=== PATIENT | female | born 1995 | race Caucasian/White ===

== ENCOUNTER 2019-02-15 19:18 | Emergency (ER) | payer MEDICAID ==
--- NOTE | 2019-02-15 19:51 | ER Document Report ---
ED General - General Chief Complaint: Urinary Problem Stated Complaint: ABDOMINAL/BACK PAIN Time Seen by Provider: 02/15/19 19:41 Primary Care Provider: YOANA LEAL MD [Primary Care Provider] - Follow up as needed Mode of Arrival: Ambulatory Information source: Patient TRAVEL OUTSIDE OF THE [place] IN LAST 30 DAYS: No - HPI Patient complains to provider of: Suprapubic pain, dysuria, back pain Onset: Other - 4 days ago Onset/Duration: Sudden Quality of pain: Sharp Severity: Moderate Pain Level: 3 Associated symptoms: Nausea. denies: Chills, Diarrhea, Fever, Vomiting Exacerbated by: Movement, Walking Relieved by: Denies Similar symptoms previously: No Recently seen / treated by doctor: No Notes: 23-year-old female coming in today with suprapubic discomfort worse with urination, pain in the occasional nausea. Does not have vomiting. No fevers or chills. No vaginal discharge. Denies . Allergy to amoxicillin. - Related Data Allergies/Adverse Reactions: amoxicillin [Amoxicillin] Allergy (Verified 02/06/15 06:40) Diarrhea Past Medical History - General Information source: Patient - Social History Smoking Status: Smoker,Current Status Unk Family History: Reviewed & Not Pertinent - Past Medical History Cardiac Medical History: Denies: Hx Coronary Artery Disease, Hx Heart Attack, Hx Hypertension Pulmonary Medical History: Denies: Hx Asthma, Hx Bronchitis, Hx COPD, Hx Pneumonia Neurological Medical History: Denies: Hx Cerebrovascular Accident, Hx Seizures Musculoskeletal Medical History: Denies Hx Arthritis Past Surgical History: Reports: Hx Section - 2014, Hx Tonsillectomy - Immunizations Immunizations up to date: Yes Hx Diphtheria, Pertussis, Tetanus Vaccination: No Review of Systems - Review of Systems Notes: Constitutional: No fevers. No chills. EENT: No eye redness. No eye pain. No ear pain. No sore throat. Cardiovascular: No chest pain. No palpitations. Respiratory: No cough. No shortness of breath. No respiratory distress. Gastrointestinal: Suprapubic abdominal pain no nausea, vomiting, or diarrhea. Genitourinary: Positive for dysuria. Negative for vaginal discharge Musculoskeletal: Atraumatic. No swelling. No deformities. Skin: No rash or lesions. Lymphatic: No swollen lymph nodes. Neurologic: No headache. No syncope. Psychiatric: No suicidal or homicidal ideation. Physical Exam - Vital signs Vitals: Temp Pulse Resp BP Pulse Ox 98.3 F 89 18 137/87 H 100 02/15/19 19:25 02/15/19 19:25 02/15/19 19:25 02/15/19 19:25 02/15/19 19:25 - Notes Notes: General: Well-developed, well-nourished. In no acute distress. Non-toxic appearing. Cardiac: Well-perfused. Regular rate and rhythm. No murmurs, rubs, or gallops. Pulmonary: No respiratory distress. No cyanosis. Bilateral lung dickerson are clear to auscultation. Abdominal: Non-distended. Non-rigid. Bowels sounds are present in all four quadrants. No guarding or rebound. No CVA tenderness HEENT: Head is atraumatic. Conjunctivae not reddened. No tearing. PERRL. EOMI. Orbits atraumatic. No periorbital swelling or erythema. Oropharynx is without erythema, swelling, or exudates. Neck: Supple. No adenopathy. No meningismus. Dermatologic: Warm with good turgor. No rash. Atraumatic. Chest: Atraumatic. No chest wall tenderness to palpation. Musculoskeletal: Moves all extremities well. No range of motion deficits. no midline spinal tenderness or step-off. Right paralumbar tenderness Genitourinary: Examination deferred Neurologic: No gross neurologic deficits. Psychiatric: Normal mood. Course - Re-evaluation Re-evalutation: 02/15/19 19:50 We will start with a UA and a and go from there 02/15/19 21:02 Urinalysis is strongly positive. We will give her first dose of Keflex and Pyridium and will discharge her home on the same. Follow-up with [facility] for recheck on Monday - Vital Signs Vital signs: Temp Pulse Resp BP Pulse Ox 98.3 F 89 18 137/87 H 100 02/15/19 19:25 02/15/19 19:25 02/15/19 19:25 02/15/19 19:25 02/15/19 19:25 - Laboratory Laboratory results interpreted by me: 02/15/19 20:10 Urine Blood MODERATE H Urine Nitrite POSITIVE H Ur Leukocyte Esterase LARGE H Discharge - Discharge Clinical Impression: Urinary tract infection Qualifiers: Urinary tract infection type: site unspecified Hematuria presence: without hematuria Qualified Code(s): N39.0 - Urinary tract infection, site not specified Condition: Good Disposition: HOME, SELF-CARE Instructions: Urinary Tract Infection ([facility]) Prescriptions: Doxycycline Hyclate 100 mg PO BID #14 capsule Phenazopyridine HCl [Pyridium 200 mg Tablet] 200 mg PO TID 2 Days #6 tablet Referrals: YOANA LEAL MD [Primary Care Provider] - Follow up as needed
[2019-02-15 20:42] LABS: APPEARANCE,URINE CLOUDY; BILIRUBIN,URINE NEGATIVE (NEGATIVE); COLOR,URINE YELLOW; GLUCOSE, URINE NEGATIVE (NEGATIVE); KETONES,URINE NEGATIVE (NEGATIVE); LEUKOCYTE ESTERASE,URINE LARGE (NEGATIVE); NITRITE,URINE POSITIVE (NEGATIVE); PROTEIN,URINE NEGATIVE (NEGATIVE); URINE SPECIFIC GRAVITY 1.014; UROBILINOGEN,URINE NEGATIVE mg/dL (<2.0)
[2019-02-15] MEDS ORDERED: DOXYCYCLINE HYCLATE 100 MG TABLET PO ONE (21:04)
[2019-02-15] MEDS ORDERED: PHENAZOPYRIDINE HCL 200 MG TABLET PO ONE (21:04)
[2019-02-15 21:24] VITALS: BP 125/74
[2019-02-15 22:03] LABS: CHLAM PCR DETECTED (NOT DETECT); GON PCR NOT DETECTED (NOT DETECT)
== END 2019-02-15 21:30 | disposition home or self-care (01) ==
LOC: ER 19:18
DX: N39.0 Urinary tract infection, site not specified (principal); R10.2 Pelvic and perineal pain; M54.9 Dorsalgia, unspecified; R11.0 Nausea; Z88.0 Allergy status to penicillin
CPT/HCPCS: 99283; 81025; 81001; 87491; 87591; J3490

== ENCOUNTER 2019-07-25 22:54 | Emergency (ER) | payer MEDICAID ==
--- NOTE | 2019-07-25 23:05 | ER Document Report ---
ED Medical Screen (RME) - General Chief Complaint: Difficulty Swallowing Stated Complaint: DIFFUCULTY SWALLOWING,SWOLLEN LYMPH NODES Time Seen by Provider: 07/25/19 23:00 Primary Care Provider: YOANA LEAL MD [Primary Care Provider] - Follow up as needed Mode of Arrival: Ambulatory Information source: Patient Notes: 23-year-old female presents emergency department with complaints of difficulty swallowing. Reports her next [place] whenever she even drinks anything started today. Went to see urgent care they told her to suck on sour candies. Denies fever vomiting diarrhea. Reports never happened to her before. Submandibular swelling noted no obvious peritonsillar abscess I have greeted and performed a rapid initial assessment of this patient. A comp rehensive ED assessment and evaluation of the patient, analysis of test results and completion of the medical decision making process will be conducted by additional ED providers. Dictation of this chart was performed using voice recognition software; therefore, there may be some unintended grammatical errors. TRAVEL OUTSIDE OF THE [place] IN LAST 30 DAYS: No - Related Data Allergies/Adverse Reactions: amoxicillin [Amoxicillin] Allergy (Verified 02/06/15 06:40) Diarrhea Past Medical History - Past Medical History Cardiac Medical History: Denies: Hx Coronary Artery Disease, Hx Heart Attack, Hx Hypertension Pulmonary Medical History: Denies: Hx Asthma, Hx Bronchitis, Hx COPD, Hx Pneumonia Neurological Medical History: Denies: Hx Cerebrovascular Accident, Hx Seizures Renal/ Medical History: Denies: Hx Peritoneal Dialysis Musculoskeltal Medical History: Denies Hx Arthritis Past Surgical History: Reports: Hx Section - 2014, Hx Cholecystectomy - 03/2015, Hx Tonsillectomy - Immunizations Immunizations up to date: Yes Hx Diphtheria, Pertussis, Tetanus Vaccination: No Physical Exam - Vital signs Vitals: Temp Pulse Resp BP Pulse Ox 98.1 F 77 18 138/87 H 100 07/25/19 22:58 07/25/19 22:58 07/25/19 22:58 07/25/19 22:58 07/25/19 22:58 Course - Vital Signs Vital signs: Temp Pulse Resp BP Pulse Ox 98.1 F 77 18 138/87 H 100 07/25/19 22:58 07/25/19 22:58 07/25/19 22:58 07/25/19 22:58 07/25/19 22:58 Doctor's Discharge - Discharge Referrals: YOANA LEAL MD [Primary Care Provider] - Follow up as needed
--- NOTE | 2019-07-26 01:36 | ER Document Report ---
ED General - General Chief Complaint: Sore Throat Stated Complaint: DIFFUCULTY SWALLOWING,SWOLLEN LYMPH NODES Time Seen by Provider: 07/25/19 23:00 Primary Care Provider: YOANA LEAL MD [ACTIVE STAFF] - Follow up as needed Mode of Arrival: Ambulatory TRAVEL OUTSIDE OF THE [place] IN LAST 30 DAYS: No - Related Data Allergies/Adverse Reactions: amoxicillin [Amoxicillin] Allergy (Verified 02/06/15 06:40) Diarrhea Past Medical History - General Information source: Patient - Social History Smoking Status: Never Smoker Chew tobacco use (# tins/day): No Drug Abuse: None Family History: Reviewed & Not Pertinent Patient has suicidal ideation: No Patient has homicidal ideation: No - Past Medical History Cardiac Medical History: Denies: Hx Coronary Artery Disease, Hx Heart Attack, Hx Hypertension Pulmonary Medical History: Denies: Hx Asthma, Hx Bronchitis, Hx COPD, Hx Pneumonia Neurological Medical History: Denies: Hx Cerebrovascular Accident, Hx Seizures Renal/ Medical History: Denies: Hx Peritoneal Dialysis Musculoskeletal Medical History: Denies Hx Arthritis Past Surgical History: Reports: Hx Section - 2014, Hx Cholecystectomy - 03/2015, Hx Tonsillectomy - Immunizations Immunizations up to date: Yes Hx Diphtheria, Pertussis, Tetanus Vaccination: No Physical Exam - Vital signs Vitals: Temp Pulse Resp BP Pulse Ox 98.1 F 77 18 138/87 H 100 07/25/19 22:58 07/25/19 22:58 07/25/19 22:58 07/25/19 22:58 07/25/19 22:58 Course - Vital Signs Vital signs: Temp Pulse Resp BP Pulse Ox 98.1 F 77 18 138/87 H 100 07/25/19 22:58 07/25/19 22:58 07/25/19 22:58 07/25/19 22:58 07/25/19 22:58 Discharge - Discharge Clinical Impression: Sialolithiasis Condition: Stable Disposition: HOME, SELF-CARE Instructions: Sore Throat ([facility]) Additional Instructions: Your history and exam suggest that you had a salivary gland stone. This appears to be resolving. You were referred as an outpatient to an ear nose and throat doctor. If you develop fever, worsening pain or swelling, return immediately. If you develop any increased size, hardness or redness, return immediately. Referrals: YOANA LEAL MD [ACTIVE STAFF] - Follow up as needed DERRICK PACHECO MD [ACTIVE STAFF] - Follow up in 3-5 days
--- NOTE | 2019-07-26 01:43 | ER Document Report ---
ED General - General Chief Complaint: Sore Throat Stated Complaint: DIFFUCULTY SWALLOWING,SWOLLEN LYMPH NODES Time Seen by Provider: 07/25/19 23:00 Primary Care Provider: DERRICK PACHECO MD [ACTIVE STAFF] - Follow up in 3-5 days YOANA LEAL MD [ACTIVE STAFF] - Follow up as needed Mode of Arrival: Ambulatory TRAVEL OUTSIDE OF THE [place] IN LAST 30 DAYS: No - HPI Notes: 24-year-old female presents with right submandibular pain and swelling. Patient states throughout the day she has had intermittent pain and swelling in the right submandibular gland, especially if she eats something sour or drinks. She was seen in outside urgent care and told to "eat lemon drops". Achy sharp pain at times, stated worse with eating. No history of prior salivary stones. No history of malignancy. No fever, no constitutional symptoms. Moderate intensity, gradual onset, nonradiating. No other modifying factors, no other associated symptoms, no other provocative or palliative factors. - Related Data Allergies/Adverse Reactions: amoxicillin [Amoxicillin] Allergy (Verified 02/06/15 06:40) Diarrhea Past Medical History - General Information source: Patient - Social History Smoking Status: Never Smoker Chew tobacco use (# tins/day): No Drug Abuse: None Family History: Reviewed & Not Pertinent Patient has suicidal ideation: No Patient has homicidal ideation: No - Past Medical History Cardiac Medical History: Denies: Hx Coronary Artery Disease, Hx Heart Attack, Hx Hypertension Pulmonary Medical History: Denies: Hx Asthma, Hx Bronchitis, Hx COPD, Hx Pneumonia Neurological Medical History: Denies: Hx Cerebrovascular Accident, Hx Seizures Renal/ Medical History: Denies: Hx Peritoneal Dialysis Musculoskeletal Medical History: Denies Hx Arthritis Past Surgical History: Reports: Hx Section - 2014, Hx Cholecystectomy - 03/2015, Hx Tonsillectomy - Immunizations Immunizations up to date: Yes Hx Diphtheria, Pertussis, Tetanus Vaccination: No Review of Systems - Review of Systems Notes: Review of systems as in the history of present illness, otherwise negative x 10 systems. Physical Exam - Vital signs Vitals: Temp Pulse Resp BP Pulse Ox 98.1 F 77 18 138/87 H 100 07/25/19 22:58 07/25/19 22:58 07/25/19 22:58 07/25/19 22:58 07/25/19 22:58 - Notes Notes: General: Well developed . HEENT: Normocephalic, atraumatic. Pupils equal round reactive to light. No JVD. No significant submandibular swelling is noted. Intraoral exam shows no obvious asymmetry. No erythema or edema. Chest: No trauma. Respiratory: Good air exchange, normal excursion. Cardiac: Regular rhythm. No murmurs or gallops. Abdomen: Soft, benign. Nondistended. Nontender. Back: No asymmetry or gross abnormality. Motor: Grossly normal power and tone. Neurologic: Alert, nonfocal. Cranial nerves II-12 are intact. Sensation intact. Vascular: Well perfused. Normal peripheral pulses. Skin: No petechiae or purpura. Course - Re-evaluation Re-evalutation: 07/26/19 01:42 24-year-old female the after mentioned symptoms. Review of the pit provider note indicates she had some nuclear swelling. However, in the interim while she has been waiting, she apparently had gone to the bathroom and ejected a small stone from her salivary gland which she had then thrown away. She states she feels substantially better. The swelling is gone down. There is no edema or erythema, no evidence of acute infection. No high risk features to suggest malignancy. She underwent rapid strep testing prior to my evaluation, this is negative. This point I believe the patient is resolving from her likely submandibular sialolithiasis. She is referred as an outpatient ENT, given explicit instructions for signs and symptoms to look for with regard to infection, return if worsening. 07/26/19 01:43 - Vital Signs Vital signs: Temp Pulse Resp BP Pulse Ox 98.1 F 77 18 138/87 H 100 07/25/19 22:58 07/25/19 22:58 07/25/19 22:58 07/25/19 22:58 07/25/19 22:58 Discharge - Discharge Clinical Impression: Sialolithiasis Condition: Stable Disposition: HOME, SELF-CARE Instructions: Sore Throat ([facility]) Additional Instructions: Your history and exam suggest that you had a salivary gland stone. This appears to be resolving. You were referred as an outpatient to an ear nose and throat doctor. If you develop fever, worsening pain or swelling, return immediately. If you develop any increased size, hardness or redness, return immediately. Referrals: DERRICK PACHECO MD [ACTIVE STAFF] - Follow up in 3-5 days YOANA LEAL MD [ACTIVE STAFF] - Follow up as needed
[2019-07-26 01:52] VITALS: BP 128/68
== END 2019-07-26 02:13 | disposition home or self-care (01) ==
LOC: ER 22:54
DX: K11.5 Sialolithiasis (principal); Z88.0 Allergy status to penicillin
CPT/HCPCS: 87070; 87880; 99283

== ENCOUNTER 2019-08-09 18:11 | Emergency (ER) | payer MEDICAID ==
--- NOTE | 2019-08-09 19:05 | ER Document Report ---
ED Medical Screen (RME) - General Chief Complaint: Dizziness Stated Complaint: WEAKNESS Time Seen by Provider: 08/09/19 18:44 Notes: 24-year-old female presents the emergency department for reported near syncopal episode today. Stated that she felt like she was starting to black out, got some numbness in her bilateral upper extremities, worse on the left, and this occurred intermittently for several minutes. Patient reports no symptoms cu rrently NEURO: A &O X 3, normal speech, normal gailt, PERRL, EOMI, SILT, follows commands in all 4 extremities, no gross abnormalities of cranial nerves, no focal neuro deficits, no pronator drift, [id number] testing normal, rapid alternating hand movements normal, [id number] normal, distribution field engineer strength 5/5 bilateral, 5/5 strength in both proximal and distal upper and lower extremities I have greeted and performed a rapid initial assessment of this patient. A comprehensive ED assessment and evaluation of the patient, analysis of test results and completion of medical decision making process will be conducted by an additional ED providers. TRAVEL OUTSIDE OF THE [place] IN LAST 30 DAYS: No - Related Data Allergies/Adverse Reactions: amoxicillin [Amoxicillin] Allergy (Verified 08/09/19 18:41) Diarrhea Past Medical History - Past Medical History Cardiac Medical History: Denies: Hx Coronary Artery Disease, Hx Heart Attack, Hx Hypertension Pulmonary Medical History: Denies: Hx Asthma, Hx Bronchitis, Hx COPD, Hx Pneumonia Neurological Medical History: Denies: Hx Cerebrovascular Accident, Hx Seizures Renal/ Medical History: Denies: Hx Peritoneal Dialysis Musculoskeltal Medical History: Denies Hx Arthritis Past Surgical History: Reports: Hx Section - 2014, Hx Cholecystectomy - 03/2015, Hx Tonsillectomy - Immunizations Immunizations up to date: Yes Hx Diphtheria, Pertussis, Tetanus Vaccination: No Physical Exam - Vital signs Vitals: Temp Pulse Resp BP Pulse Ox 98.4 F 97 19 149/93 H 100 08/09/19 18:30 08/09/19 18:30 08/09/19 18:30 08/09/19 18:30 08/09/19 18:30 Course - Vital Signs Vital signs: Temp Pulse Resp BP Pulse Ox 98.4 F 97 19 149/93 H 100 08/09/19 18:30 08/09/19 18:30 08/09/19 18:30 08/09/19 18:30 08/09/19 18:30
[2019-08-09 20:10] LABS: ABSOLUTE LYMPHOCYTES (AUTO) 1.7 10^3/uL (0.5-4.7); ABSOLUTE MONOCYTES (AUTO) 0.4 10^3/uL (0.1-1.4); ABSOLUTE NEUT (AUTO) 5.1 10^3/uL (1.7-8.2); BASOPHILS % (AUTO) 0.6 % (0-2); EOSINOPHILS % (AUTO) 0.3 % (0-6); HEMATOCRIT 39.7 % (36.0-47.0); HEMOGLOBIN 13.7 g/dL (12.0-15.5); LYMPHOCYTES % (AUTO) 23.2 % (13-45); MEAN CORPUSCULAR HGB CONC 34.5 g/dL (32.0-36.0); MEAN CORPUSCULAR VOLUME 81 fl (80-97); MONOCYTES % (AUTO) 5.9 % (3-13); PLATELET COUNT 235 10^3/uL (150-450); RED BLOOD COUNT 4.88 10^6/uL (3.72-5.28); RED CELL DISTRIBUTION WIDTH 14.2 % (11.5-14.0); TOTAL CELLS COUNTED % (AUTO) 100 %; WHITE BLOOD COUNT 7.2 10^3/uL (4.0-10.5)
[2019-08-09 20:22] LABS: APPEARANCE,URINE SLIGHTLY-CLOUDY; BILIRUBIN,URINE NEGATIVE (NEGATIVE); COLOR,URINE YELLOW; GLUCOSE, URINE NEGATIVE (NEGATIVE); KETONES,URINE NEGATIVE (NEGATIVE); LEUKOCYTE ESTERASE,URINE LARGE (NEGATIVE); NITRITE,URINE NEGATIVE (NEGATIVE); PROTEIN,URINE NEGATIVE (NEGATIVE); URINE SPECIFIC GRAVITY 1.012; UROBILINOGEN,URINE NEGATIVE mg/dL (<2.0)
[2019-08-09 20:25] LABS: ALBUMIN 4.8 g/dL (3.5-5.0); ALKALINE PHOSPHATASE 61 U/L (38-126); ANION GAP 13 (5-19); ASPARTATE AMINO TRANSFERASE 22 U/L (14-36); BILIRUBIN,DIRECT 0.2 mg/dL (0.0-0.4); BILIRUBIN,TOTAL 0.6 mg/dL (0.2-1.3); BLOOD UREA NITROGEN 11 mg/dL (7-20); CALCIUM 9.7 mg/dL (8.4-10.2); CARBON DIOXIDE 21 mmol/L (22-30); CHLORIDE 108 mmol/L (98-107); GLUCOSE 86 mg/dL (75-110); POTASSIUM 4.5 mmol/L (3.6-5.0); TOTAL PROTEIN 8.3 g/dL (6.3-8.2)
--- NOTE | 2019-08-09 20:35 | ER Document Report ---
ED General - General Chief Complaint: Dizziness Stated Complaint: WEAKNESS Time Seen by Provider: 08/09/19 18:44 Primary Care Provider: LETICIA HARRIS FNP-C [Primary Care Provider] - Follow up as needed TRAVEL OUTSIDE OF THE [place] IN LAST 30 DAYS: No - HPI Notes: 24-year-old female presents with near syncope and some paresthesias. Patient states she been sitting down and got up, she felt lightheaded like she was going to pass out, she developed some paresthesias in her bilateral hands and then in her left upper extremity that were transient. No headache, no trauma. No recent diarrhea or vomiting. This lasted approximately 15 minutes or so and then largely resolved. She had an additional episode again where she felt like she was going to pass out. There is no family history of sudden in early age. Denies any illicit drug use. No use of estrogens or oral contraceptives. No use of energy drinks or natural supplements. Denies any chest pain, no dyspnea. No large tanner-pain or swelling. No personal history of venous thromboembolism. Moderate intensity, rapid onset, nonradiating. She does not feel like her heart was beating fast or slow. No associated chest pain. No other modifying factors, no other associated symptoms, no other provocative or palliative factors. - Related Data Allergies/Adverse Reactions: amoxicillin [Amoxicillin] Allergy (Verified 08/09/19 18:41) Diarrhea Past Medical History - Social History Smoking Status: Never Smoker Family History: Reviewed & Not Pertinent Patient has suicidal ideation: No Patient has homicidal ideation: No - Past Medical History Cardiac Medical History: Denies: Hx Coronary Artery Disease, Hx Heart Attack, Hx Hypertension Pulmonary Medical History: Denies: Hx Asthma, Hx Bronchitis, Hx COPD, Hx Pneumonia Neurological Medical History: Denies: Hx Cerebrovascular Accident, Hx Seizures Renal/ Medical History: Denies: Hx Peritoneal Dialysis Musculoskeletal Medical History: Denies Hx Arthritis Past Surgical History: Reports: Hx Section - 2014, Hx Cholecystectomy - 03/2015, Hx Tonsillectomy - Immunizations Immunizations up to date: Yes Hx Diphtheria, Pertussis, Tetanus Vaccination: No Review of Systems - Review of Systems Notes: Review of systems as in the history of present illness, otherwise negative x 10 systems. Physical Exam - Vital signs Vitals: Temp Pulse Resp BP Pulse Ox 98.4 F 97 19 149/93 H 100 08/09/19 18:30 08/09/19 18:30 08/09/19 18:30 08/09/19 18:30 08/09/19 18:30 - Notes Notes: General: Well developed, well nourished. HEENT: Normocephalic, atraumatic. PEERL. No conjunctival injection. Neck: Supple, no significant adenopathy. No meningismus. Chest: Clear bilaterally, good air entry. Abdomen: Soft, non-tender, nondistended. Back: Non-tender. Normal ROM Extremities: No cyanosis, clubbing or edema. Vascular: Symmetric peripheral pulses, normal capillary refill. Skin: No significant rash. No petechiae or purpura. Motor: Normal tone and power. Symmetric. Neurologic: Alert and oriented to person place and time. Cranial nerves II-12 are intact. Sensation intact and symmetric in the upper and lower extremities. No cerebellar findings including finger-nose testing. No clonus. Gait normal. Funduscopic exam shows crisp disc margins, no evidence of papilledema. Course - Re-evaluation Re-evalutation: 08/09/19 20:34 This is an exceptionally well-appearing female who presents with near syncope and some transient paresthesias. She has no risk factors or features that suggest intracranial hemorrhage, doubt CVA. She does later admit to a history of occasional migraine about every several months to 6 months. But no history of complex vascular migraines. Arrhythmia is possible but less likely. She had a recent change in her medications. Plan to proceed with evaluation of labs ordered by the pit provider, serial exams and reevaluate. 08/09/19 21:17 Labs reviewed, CBC, chemistries, TSH and remainder labs are unremarkable. Serial exam show benign exam, no neurologic abnormalities. Patient remains asymptomatic, discharged home to follow close with a primary care physician, return if worsening. - Vital Signs Vital signs: Temp Pulse Resp BP Pulse Ox 98.4 F 97 19 149/93 H 100 08/09/19 18:30 08/09/19 18:30 08/09/19 18:30 08/09/19 18:30 08/09/19 18:30 - Laboratory Result Diagrams: 08/09/19 19:53 08/09/19 19:53 Laboratory results interpreted by me: 08/09/19 08/09/19 08/09/19 19:53 19:53 19:53 RDW 14.2 H Chloride 108 H Carbon Dioxide 21 L Total Protein 8.3 H Ur Leukocyte Esterase LARGE H Discharge - Discharge Clinical Impression: Syncope, near Condition: Stable Disposition: HOME, SELF-CARE Instructions: Near Syncopal Episode ([facility]) Referrals: LETICIA HARRIS, LITHOGRAPHIC PRINTING MACHINIST-C [Primary Care Provider] - Follow up tomorrow
[2019-08-09 22:08] VITALS: BP 137/76
--- NOTE | 2019-08-10 13:09 | EKG REPORT ---
SEVERITY:- NORMAL ECG - SINUS RHYTHM : Confirmed by: Shivani Bains MD 10-Aug-2019 13:07:59
== END 2019-08-09 22:09 | disposition home or self-care (01) ==
LOC: ER 18:11
DX: R55 Syncope and collapse (principal); R20.2 Paresthesia of skin; Z88.0 Allergy status to penicillin
CPT/HCPCS: 36415; 80053; 81001; 81025; 84443; 85025; 93005; 93010; 99284

== ENCOUNTER 2020-08-27 18:22 | Emergency (ER) | payer MEDICAID ==
--- NOTE | 2020-08-27 20:44 | RADIOLOGY REPORT (SQ) ---
EXAM: U/S OB TRANSVAG W/DOPPLER CLINICAL INDICATION: Pelvic pain. COMPARISON: None. TECHNIQUE: First trimester OB ultrasound was performed. FINDINGS: Uterus: The uterus measures 7.8 x 4.3 x 5.3 cm. The cervix is closed and measures 2.1 cm. A single oval gestational sac is identified. There is a single pole with a heart rate of 147 bpm. Adjacent to the gestational sac is a large irregular hypoechoic area measuring 1.8 x 0.9 x 2.1 cm consistent with a subchorionic hemorrhage. The crown-rump length is 9.4 mm which correlates with a gestational age of seven weeks zero days. Ovaries and adnexa: The right ovary measures 2.2 x 1.3 x 1.8 cm with normal color and spectral waveform. There is normal follicles. The left ovary measures 3.7 x 1.8 x 2.4 cm and contains a corpus luteal cyst measuring 1.8 x 1.8 x 1.9 cm. Normal color and spectral waveforms. IMPRESSION: 1. Single living intrauterine with gestational age of seven weeks zero days and estimated delivery date of 04/15/2021. This correlates with the clinical age. 2. Associated subchorionic hemorrhage. 3. Probable left corpus luteal cyst.
--- NOTE | 2020-08-27 20:58 | RADIOLOGY REPORT (SQ) ---
EXAM DESCRIPTION: CHEST SINGLE VIEW CLINICAL HISTORY: 25 years Female, cough COMPARISON: None. FINDINGS: Lungs: Lungs are clear. No pneumonia or edema. No pneumothorax or pleural effusion. Mediastinum: Cardiac and mediastinal silhouette are normal. Bones: Osseous structures are normal. IMPRESSION: Unremarkable single view of the chest. No acute process
--- NOTE | 2020-08-27 21:31 | ER Document Report ---
ED Medical Screen (RME) - General Chief Complaint: Cough Stated Complaint: COUGH/7 WEEKS PREG Time Seen by Provider: 08/27/20 19:23 Primary Care Provider: LETICIA HARRIS FNP-C [Primary Care Provider] - Follow up as needed Mode of Arrival: Ambulatory Information source: Patient Notes: HPI; 25-year-old female who states she is approximately 7 weeks present s to the emergency room complaining of a cough for the past 4 days. States she has been taking Mucinex without relief. She is a 2 para 1. [facility]. Has not had an ultrasound as of yet. Also complaining of some vaginal discharge and abdominal cramping for the past 2 days. Denies any bleeding. Denies any COVID-19 exposure. PE: Alert and oriented x3. Lungs: Clear to auscultation without rales, rhonchi, wheezes. Heart: Regular rate rhythm without murmurs, rubs, gallops. I have greeted and performed a rapid initial assessment of this patient. A comprehensive ED assessment and evaluation of the patient, analysis of test results and completion of the medical decision making process will be conducted by additional ED providers. I have specifically instructed the patient or family members with the patient to immediately return to any nursing staff should anything change in the patient's condition or with their chief complaint. TRAVEL OUTSIDE OF THE [place] IN LAST 30 DAYS: No - Related Data Allergies/Adverse Reactions: amoxicillin [Amoxicillin] Allergy (Verified 08/09/19 18:41) Diarrhea Past Medical History - Past Medical History Cardiac Medical History: Denies: Hx Coronary Artery Disease, Hx Heart Attack, Hx Hypertension Pulmonary Medical History: Denies: Hx Asthma, Hx Bronchitis, Hx COPD, Hx Pneumonia Neurological Medical History: Denies: Hx Cerebrovascular Accident, Hx Seizures Renal/ Medical History: Denies: Hx Peritoneal Dialysis Musculoskeltal Medical History: Denies Hx Arthritis Past Surgical History: Reports: Hx Section - 2014, Hx Cholecystectomy - 03/2015, Hx Tonsillectomy - Immunizations Immunizations up to date: Yes Hx Diphtheria, Pertussis, Tetanus Vaccination: No Physical Exam - Vital signs Vitals: Temp Pulse Resp BP Pulse Ox 98.2 F 88 16 151/81 H 100 08/27/20 18:27 08/27/20 18:27 08/27/20 18:27 08/27/20 18:27 08/27/20 18:27 Course - Vital Signs Vital signs: Temp Pulse Resp BP Pulse Ox 98.2 F 88 16 151/81 H 100 08/27/20 18:27 08/27/20 18:27 08/27/20 18:27 08/27/20 18:27 08/27/20 18:27 Doctor's Discharge - Discharge Referrals: LETICIA HARRIS, BUS DRIVER-C [Primary Care Provider] - Follow up as needed
[2020-08-27 23:56] LABS: A TYPE INFLUENZA AG NEGATIVE (NEGATIVE); B INFLUENZA AG NEGATIVE (NEGATIVE)
--- NOTE | 2020-08-28 00:42 | ER Document Report ---
ED General - General Chief Complaint: Cough Stated Complaint: COUGH/7 WEEKS PREG Time Seen by Provider: 08/27/20 19:23 Primary Care Provider: LETICIA HARRIS FNP-C [COMMUNITY BASED STAFF] - Follow up in 3-5 days Mode of Arrival: Ambulatory Notes: 25-year-old female G2, P1 approximately 7 weeks presents with about 2 days of dry cough. Patient says she is bothered by frequent coughing and when she is in the middle of a coughing fit feels like she cannot catch her breath but then when cough is resolved she has no shortness of breath. Patient feels a generalized anterior chest wall aching sensation when she has cough but has no chest pain otherwise. Patient had momentary feeling of upper left abdominal pain that came on suddenly while she was coughing but only lasted for a few minutes and has been resolved for hours. Patient apparently endorsed vaginal discharge in triage, but she is confused as to why I am bringing this up because she says that she has had vaginal discharge for many years and that it is completely unchanged from this normal vaginal discharge and she has no vaginal complaints. No ultrasound yet this . Patient denies any exertional chest pain, pleuritic chest pain, productive cough, immune compromise history, asthma history, vaginal bleeding, vomiting, diarrhea, weakness, fainting, lower extremity edema TRAVEL OUTSIDE OF THE [place] IN LAST 30 DAYS: No - Related Data Allergies/Adverse Reactions: amoxicillin [Amoxicillin] Allergy (Verified 08/09/19 18:41) Diarrhea Past Medical History - General Information source: Patient - Social History Smoking Status: Unknown if Ever Smoked Family History: Reviewed & Not Pertinent - Past Medical History Cardiac Medical History: Denies: Hx Coronary Artery Disease, Hx Heart Attack, Hx Hypertension Pulmonary Medical History: Denies: Hx Asthma, Hx Bronchitis, Hx COPD, Hx Pneumonia Neurological Medical History: Denies: Hx Cerebrovascular Accident, Hx Seizures Renal/ Medical History: Denies: Hx Peritoneal Dialysis Musculoskeletal Medical History: Denies Hx Arthritis Past Surgical History: Reports: Hx Section - 2014, Hx Cholecystectomy - 03/2015, Hx Tonsillectomy - Immunizations Immunizations up to date: Yes Hx Diphtheria, Pertussis, Tetanus Vaccination: No Review of Systems - Review of Systems Notes: REVIEW OF SYSTEMS: CONSTITUTIONAL : Denies fever, chills, or sweats. EENT: Denies recent sinus symptoms, denies throat pain CARDIOVASCULAR: Denies chest pain, [employer] RESPIRATORY: + cough, denies shortness of breath. GASTROINTESTINAL: Denies abdominal pain, nausea/vomiting. GENITOURINARY: Denies difficulty urinating, painful urination. FEMALE GENITOURINARY: Denies abnormal vaginal bleeding, abnormal vaginal discharge. MUSCULOSKELETAL: Denies neck pain, back pain. SKIN: Denies rash or skin lesions. HEMATOLOGIC : Denies easy bruising or bleeding. LYMPHATIC: Denies swollen, enlarged glands. NEUROLOGICAL: Denies headache, denies change in gait. PSYCHIATRIC: Denies anxiety or stress or depression. Physical Exam - Vital signs Vitals: Temp Pulse Resp BP Pulse Ox 98.2 F 88 16 151/81 H 100 08/27/20 18:27 08/27/20 18:27 08/27/20 18:27 08/27/20 18:27 08/27/20 18:27 - Notes Notes: PHYSICAL EXAMINATION: GENERAL: Very well-appearing, well-nourished young adult female sitting up on stretcher without any visible signs of discomfort and in no acute distress. HEAD: Atraumatic, normocephalic. EYES: Pupils equal round and appropriate constriction, sclera anicteric, conjunctiva are normal. ENT: nares patent, moist mucous membranes. NECK: Normal range of motion, supple without lymphadenopathy LUNGS: Breath sounds clear to auscultation bilaterally and equal. No wheezes rales or rhonchi. Normal respiratory rate and effort. Speaking in full sentences. No tripoding, no accessory muscle use. HEART: Regular rate and rhythm without murmurs ABDOMEN: Soft, nontender, no guarding, no masses, no CVAT EXTREMITIES: Normal range of motion, no pitting or edema. No cyanosis. NEUROLOGICAL: Awake, alert, conversing appropriately, moves all extremities spontaneously. PSYCH: Normal mood, normal affect. SKIN: Warm, Dry, normal turgor, no rashes or lesions noted. Course - Re-evaluation Re-evalutation: 08/28/20 00:40 Patient with 2 days of mild dry cough without any shortness of breath, very well-appearing, normal respiratory exam, normal vital signs, benign abdominal exam. Patient momentary abdominal discomfort while she was coughing which is completely resolved now. Originally ordered pelvic exam set up and swabs, but after discussing with patient these are no longer indicated. Patient obtain chest x-ray without any signs concerning for pneumonia or Covid. Presentation not consistent with PE and no indication to rule out at this time. Patient had Covid and flu swab sent and ready for discharge with PCP and [facility] follow-up. Ins tructed to quarantine and given extensive return to ED precautions which she demonstrated understanding of. Blood pressure mildly elevated, no indication to rule out preeclampsia at 7 weeks gestational age, instructed patient to follow this up with his PCP and [facility]. The patient was evaluated during the global COVID-19 pandemic and that diagnosis was suspected/considered upon their initial presentation. Their evaluation, treatment and testing was consistent with current guidelines for patients who present with complaints or symptoms that may be related to COVID-19. - Vital Signs Vital signs: Temp Pulse Resp BP Pulse Ox 98.2 F 95 18 136/78 H 100 08/28/20 01:32 08/28/20 01:10 08/28/20 01:10 08/28/20 01:10 08/28/20 01:10 - Laboratory Result Diagrams: 08/28/20 01:00 08/28/20 01:00 Laboratory results interpreted by me: 08/28/20 08/28/20 01:00 01:00 Hct 34.3 L RDW 14.2 H Ur Leukocyte Esterase LARGE H Discharge - Discharge Clinical Impression: Cough, Intrauterine Disposition: HOME, SELF-CARE Additional Instructions: Your blood pressure was mildly elevated in the emergency department at 147/87. Have this rechecked with your primary doctor. Follow-up with your primary doctor within 3 days and your general service technician within 1 week. If you have any worsening symptoms, difficulty breathing, dizziness, f ainting, vomiting with inability to keep down liquids, vaginal bleeding, pelvic pain, fever, or any other worsening or alarming symptoms return to the emergency department immediately. Patient was provided with discharge information including: As a person under investigation for Covid 19, the [place] department of Health and Human Services, division of public health advises you to adhere to the following guidance until your test results are reported to you. If your test result is positive, you will receive additional information from your provider and your local health department at that time. Remain at home until you are cleared by the health provider or public health authorities. Keep a log of visitors to your home, notify any visitors to your home of your isolation status. If you plan to move to a new address or leave the county, notify the local health department in your County. Call your doctor or seek care if you have an urgent medical need. Before seeking medical care, call ahead to get instructions from the provider before arriving at the medical office clinic or hospital. Notify them that you are being tested for the virus that causes Covid 19 so that arrangements can be made, as necessary, to prevent transmission to others in the healthcare setting. Next, notify the local health department in your county. If a medical emergency arises and you need to call 911, inform the first responders that you are being tested for the virus that causes Covid 19. Next, notify the local health department in your county. Prescriptions: Dextromethorphan HBr [Cough Relief] 15 mg PO Q4HP PRN #150 ml PRN Reason: Cough Referrals: LETICIA HRARIS FNP-C [COMMUNITY BASED STAFF] - Follow up in 3-5 days
[2020-08-28 01:11] VITALS: BP 136/78
[2020-08-28 01:24] LABS: ABSOLUTE EOSINOPHILS # (AUTO) 0.1 10^3/uL (0.0-0.6); ABSOLUTE LYMPHOCYTES (AUTO) 2.3 10^3/uL (0.5-4.7); ABSOLUTE MONOCYTES (AUTO) 0.5 10^3/uL (0.1-1.4); ABSOLUTE NEUT (AUTO) 3.4 10^3/uL (1.7-8.2); BASOPHILS % (AUTO) 0.5 % (0-2); EOSINOPHILS % (AUTO) 1.4 % (0-6); HEMATOCRIT 34.3 % (36.0-47.0); HEMOGLOBIN 12.4 g/dL (12.0-15.5); LYMPHOCYTES % (AUTO) 36.9 % (13-45); MEAN CORPUSCULAR HEMOGLOBIN 29.2 pg (27.0-33.4); MEAN CORPUSCULAR VOLUME 81 fl (80-97); MONOCYTES % (AUTO) 7.8 % (3-13); PLATELET COUNT 213 10^3/uL (150-450); RED BLOOD COUNT 4.24 10^6/uL (3.72-5.28); RED CELL DISTRIBUTION WIDTH 14.2 % (11.5-14.0); SEGMENTED NEUTROPHILS % (AUTO) 53.4 % (42-78); TOTAL CELLS COUNTED % (AUTO) 100 %; WHITE BLOOD COUNT 6.3 10^3/uL (4.0-10.5)
[2020-08-28 01:31] LABS: APPEARANCE,URINE CLOUDY; BILIRUBIN,URINE NEGATIVE (NEGATIVE); COLOR,URINE YELLOW; GLUCOSE, URINE NEGATIVE (NEGATIVE); KETONES,URINE NEGATIVE (NEGATIVE); LEUKOCYTE ESTERASE,URINE LARGE (NEGATIVE); NITRITE,URINE NEGATIVE (NEGATIVE); PROTEIN,URINE NEGATIVE (NEGATIVE); URINE SPECIFIC GRAVITY 1.009; UROBILINOGEN,URINE NEGATIVE mg/dL (<2.0)
[2020-08-28 01:44] LABS: ALBUMIN 3.8 g/dL (3.5-5.0); ALKALINE PHOSPHATASE 61 U/L (38-126); ANION GAP 12 (5-19); ASPARTATE AMINO TRANSFERASE 17 U/L (14-36); BILIRUBIN,DIRECT 0.1 mg/dL (0.0-0.4); BILIRUBIN,TOTAL 0.7 mg/dL (0.2-1.3); BLOOD UREA NITROGEN 4 mg/dL (7-20); CARBON DIOXIDE 20 mmol/L (22-30); CHLORIDE 105 mmol/L (98-107); GLUCOSE 97 mg/dL (75-110); POTASSIUM 3.5 mmol/L (3.6-5.0); TOTAL PROTEIN 6.7 g/dL (6.3-8.2)
== END 2020-08-28 01:41 | disposition home or self-care (01) ==
LOC: ER 18:22
DX: O26.891 Other specified pregnancy related conditions, first trimester (principal); R05 Cough; R07.89 Other chest pain; O20.8 Other hemorrhage in early pregnancy; Z3A.01 Less than 8 weeks gestation of pregnancy; Z88.0 Allergy status to penicillin; Z20.828 Contact with and (suspected) exposure to other viral communicable diseases
CPT/HCPCS: 99285; 36415; 84702; 84443; 85025; 87635; 80053; 81001; 87804; 71045; 76817; 93976; C9803